=== PATIENT | female | born 1995 | race Asian ===

== ENCOUNTER 2024-01-05 14:39 | Emergency (ER) | payer SELFPAY ==
[2024-01-05 14:48] VITALS: BP 132/83
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
[2024-01-05 16:40] VITALS: BP 128/77
== END 2024-01-05 16:41 | disposition home or self-care (01) ==
LOC: EMR 14:39
PROVIDERS: EMERGENCY PHYSICIAN Emergency Medicine
DX: R07.89 Other chest pain (principal); V89.2XXA Person injured in unspecified motor-vehicle accident, traffic, initial encounter
CPT/HCPCS: 99284; 71046; 93005